=== PATIENT | female | born 1935 | race Caucasian/White ===

== ENCOUNTER 2018-03-20 18:54 | Inpatient (IN) | payer MEDICARE ==
[~2018-03-20] VITALS: Ht 152.4 cm; Wt 72.1 kg
--- NOTE | ~2018-03-20 | PR ---
[place], [place] PROGRESS NOTE NAME: [facility] UNIT #: [id number] ROOM: 314 DOCTOR: BRYCE CHACON MD BIRTHDATE: [birth year] DOS: 03/29/2018 CHIEF COMPLAINT: "I woke up at 4:00 and couldn't go back to bed." SUMMARY OF THE VISIT: The patient was interviewed as she was sitting in the dining area. She does report that her anxiety is under better control, but her depression is still persistent, although this has improved, but it has not gone completely. She also endorses significant sleep issues continuing. She denies any side effects from the medicine. MENTAL STATUS: She is alert and oriented. Mood does seem to be still depressed. Affect is still somewhat constricted. She is much less anxious. There is no hypomania or anju. There are no overt auditory or visual hallucinations. No delusions, no paranoia. Short, intermediate and long-term memories are intact. PLAN: I will go ahead and increase her Cymbalta from 30 to 60 mg at bedtime, hoping to impact positively on her mood and improve sleep and appetite. We will continue to engage in individual and obregon milieu activity, returning to the least restrictive environment when psychiatrically stable. BRYCE CHACON MD CM:PNTRANS [id number] BRYCE CHACON MD 03/29/18 1727 interface
--- NOTE | ~2018-03-20 | DS ---
[place], [place] DISCHARGE SUMMARY [id number] UN[facility] #: [id number] ROOM: 314 DOCTOR: BRYCE CHACON MD BIRTHDATE: [birth year] DOS: 03/31/2018 CHIEF COMPLAINT: "I just wore myself out. I was doing too much." HISTORY OF PRESENT ILLNESS: This is an 83-year-old white female who was sent here from [facility]. The patient had presented to [place] extremely depressed and despondent. 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 She notes poor sleep with difficulty falling asleep, sleep continuity disturbance, peoplesoft hcm consultant awakening, anergia, anhedonia, hopeless, helpless feelings, crying spells, and inability to cope. She has had such a poor appetite. She has lost several pounds. She is feeling hopeless and helpless. She is also having fleeting suicidal thoughts. She is admitted to stabilize on medication, to engage in individual and obregon milieu activity, discharging then when psychiatrically stable. SUMMARY OF HOSPITAL COURSE: The patient was admitted to the unit where her Lexapro was initially discontinued in lieu of Remeron 15 mg at bedtime. The patient did state that this did help her sleep, but she started to complain of feeling weird and feeling heart palpitations because of it and was sprayed to take it. Remeron was discontinued in lieu of Cymbalta 30 mg at bedtime, which she did tolerate. Screening examination showed her to have a low vitamin D level of 17.6, so vitamin D was started to augment her level at a dose of 5000 International Units daily. Ultimately, she began to notice that anxiety and depression when hand in hand and she was started on Atarax 10 mg 3 times a day. The dose was increased as high as 25 mg 4 times a day, but this caused her too much sedation and was finally brought down to 20 mg 3 times a day with excellent results. Ultimately, the dose of the Cymbalta was stabilized at 60 mg at bedtime. With these changes, the patient slept relatively well through the night, at times waking up at 3 or 4 in the morning, but going back to bed. She had much more energy during the day. She was able to eat and attend her ADLs. She voiced positive plans for the future. She no longer had suicidal thoughts and did feel that she could return home safely. MENTAL STATUS AT DISCHARGE: The patient was alert and oriented with time gaps that were only minimal. Mood was strongly trending towards euthymia. Affect was much more appropriate. There was no anju, hypomania or psychosis. There were no suicidal thoughts, homicidal thoughts, or self-injurious thoughts. Memory for the most part was intact. FINAL DIAGNOSIS: Major depression, recurrent, severe. PLAN: All of her prescriptions have been printed and will be sent with her. She will have outpatient followup in the community. At the time of discharge, she was psychiatrically and medically stable. [place], [place] DISCHARGE SUMMARY NAME: [facility] UNIT #: [id number] ROOM: [facility] DOCTOR: BRYCE CHACON MD BIRTHDATE: [birth year] BRYCE CHACON MD CM:JACINDA 5 BRYCE CHACON MD 03/31/18 1258 interface
--- NOTE | ~2018-03-20 | WRIGHTHP ---
[place], [place] PATIENT HISTORY AND PHYSICAL EXAM [id number] UN[facility] #: [id number] ROOM: 312 DOCTOR: BRYCE CHACON MD BIRTHDATE: [birth year] DOS: 03/21/2018 INITIAL PSYCHIATRIC EVALUATION CHIEF COMPLAINT: "I just wore myself out, I was doing too much." HISTORY OF PRESENT ILLNESS: This is an 83-year-old white female who was sent here from [facility]. The patient presented there extremely depressed and despondent. 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 She notes poor sleep with difficulty falling asleep, sleep continuity disturbance, care transition mgr awakening, anergia, anhedonia, hopeless, helpless feelings, crying spells, and inability to cope. She has had poor appetite and has lost several pounds. She feels hopeless and helpless and does not know what to do. She is admitted now to rule out organic factors and attempt to stabilize on medication, returning to the least restrictive environment when psychiatrically stable. PAST MEDICAL HISTORY: Remarkable for colonic polyps, diverticulosis, hyperlipidemia, hypertension, hypothyroidism, osteoarthritis. SOCIAL HISTORY: She does not smoke cigarettes, use illicit drugs or drink alcohol. STRENGTHS: Ambulatory, good verbal skills. WEAKNESSES: Poor coping skills. ALLERGIES: Listed to OPIOIDS, ACETAMINOPHEN, ZITHROMAX and CITALOPRAM. MENTAL STATUS: The patient is alert and oriented to person, place and time. Mood does seem to be overwhelmingly depressed. Affect is flat and blunted. Speech rate and pattern is somewhat slow, but within normal limits for the most part. There is no hypomania or anju. There is no gross psychosis. No auditory or visual hallucinations. No delusions, no paranoia. Short, intermediate, and long-term memory are intact. DIAGNOSIS: Major depression, recurrent, severe. PLAN: I had already discontinued her Lexapro in lieu of Remeron while the patient did report that she slept through the night. She reported that she woke up at 3:00 a.m., with significant jerking motion in her legs that has never happened before. Whether this is related to the Remeron or not, I will go ahead and err on the side that it is and discontinue it in lieu of Cymbalta now 30 mg at bedtime. Routine screening examinations revealed her vitamin D level to be subtherapeutic at 17.6. I will start vitamin D 5000 International Units daily, engage in individual and obregon milieu activity, returning to the least restrictive environment when psychiatrically stable. [place], [place] PATIENT HISTORY AND PHYSICAL EXAM NAME: [facility] UNIT #: [id number] ROOM: 312 DOCTOR: BRYCE CHACON MD BIRTHDATE: [birth year] BRYCE CHACON MD CM:HISPHYS:PATIENT HISTORY AND PHYSICAL EXAMINATION [id number] BRYCE CHACON MD 03/21/18 1205 interface
--- NOTE | ~2018-03-20 | PR ---
[place], [place] PROGRESS NOTE NAME: [facility] UNIT #: [id number] ROOM: 314 DOCTOR: BRYCE CHACON MD BIRTHDATE: [birth year] DOS: 03/28/2018 CHIEF COMPLAINT: "I actually feel better. I am going to have to try that sleeping pill though." SUMMARY OF THE VISIT: The patient was interviewed as she was sitting in the dining room with some female peers. She had completed her breakfast. She reported to me that the dose of the Atarax now does seem to be spot on and that it is working without any excess sedation. Her only complaint is that she did not sleep well. She initially refused the sleeping pill, but tonight wants to try to see how she does with it as sleep continues to be a problem because as she puts it, her wheels keep turning and she cannot shut it off. Otherwise, she is doing well and is trending towards euthymia. MENTAL STATUS: She is alert and oriented. Mood does seem to be strongly trending towards euthymia. Affect is much more appropriate. There is no anju or hypomania or psychosis. Short term memory, long-term memory and intermediate memory are relatively intact. PLAN: I will maintain her current psychotropics. Continue to support and monitor. Continue to engage in individual and obregon milieu activity, returning to the least restrictive environment when psychiatrically stable. BRYCE CHACON MD CM:PNTRANS [id number] BRYCE CHACON MD 03/28/18 1413 interface
--- NOTE | ~2018-03-20 | PR ---
[place], [place] PROGRESS NOTE NAME: [facility] UNIT #: [id number] ROOM: 314 DOCTOR: BRYCE CHACON MD BIRTHDATE: [birth year] DOS: 03/24/2018 CHIEF COMPLAINT: "I feel like I have butterflies in my chest." SUMMARY OF THE VISIT: The patient was interviewed in the dining area. She reported to me that she had butterflies in her chest. We talked at first about whether this was a medication side effects to which she seems to minimize that as a possibility. When I did tell her that I was thinking of possibly discharging her, she said that the feeling it worse and that she truly is an anxious person. When I did redirect this and I asked her specifically if she thinks that she is experiencing anxiety, she nodded in approval and stated that she has always been a very nervous person her entire life. She was willing to allow me to utilize an antianxiety medication throughout the day to see if it would help with the feelings. MENTAL STATUS: She remains alert and oriented with some time gaps. Mood does seem to be fairly euthymic. She is outwardly anxious, however. There is no anju or psychosis. There is no significant memory issues. PLAN: I will order Atarax 10 mg to be given at every 0900 hours and 1300 hours. We will monitor for risk, benefit, engage in individual and obregon milieu activity, returning to the least restrictive environment when psychiatrically stable. BRYCE CHACON MD CM:PNTRANS 1308 BRYCE CHACON MD 03/24/18 1309 interface
--- NOTE | ~2018-03-20 | CON ---
[place], [place] REPORT OF CONSULTATION NAME: [facility] UNIT #: [id number] ROOM: 314 DOCTOR: PHD BRADEN CHANDLER BIRTHDATE: [birth year] DOS: 03/25/2018 HISTORY OF PRESENT ILLNESS: The patient is an 83-year-old female referred by Dr. Sheridan for counseling. She was presently on the [facility]. The patient's many years ago and her partner recently had another stroke on , which triggered an episode of depression for the patient. 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 She does not have any children and is close with her sister. She denied alcohol, tobacco and illegal drug use. PAST MEDICAL HISTORY: Colonic polyps, diverticulosis, hyperlipidemia, hypertension, hypothyroidism, osteoarthritis. MEDICATIONS: Atarax, vitamin D, Lipitor, Cymbalta, Ziac, Travatan, Protonix, Synthroid, Geodon, and Ativan. PHYSICAL EXAMINATION: NEUROLOGIC: The patient was awake, alert and oriented to person, place and time. She was pleasant and cooperative. Mood was anxious and depressed and affect was tearful. She firmly denied current suicidal ideation and homicidal ideation, although she had been experiencing a desire for for several weeks prior. She denied a plan or intent. Speech was within normal limits with respect to rhythm, rate, volume and tone. Expressive and receptive language was within normal limits conversationally. Thought process was linear and goal directed and thought content was negative for obvious hallucinations or delusions. Insight and judgment appeared fair. Discussed caregiving fatigue and the patient fears about returning home, utilized CBT and supportive therapy interventions. The patient was receptive to feedback. She is interested in outpatient therapy upon discharge. DIAGNOSES: Major depressive disorder, recurrent, severe without psychotic features. PLAN: I will continue to follow the patient as needed. She agrees to follow up with counseling as an outpatient upon discharge. Thank you very much for this consult. [place], [place] REPORT OF CONSULTATION NAME: [facility] UNIT #: [id number] ROOM: 314 DOCTOR: PHD BRADEN CHANDLER BIRTHDATE: [birth year] Beatrice Chandler PhD CM:CONSTR:REPORT OF CONSULTATION 1426 03/25/18 1448 interface
--- NOTE | ~2018-03-20 | PR ---
[place], [place] PROGRESS NOTE NAME: [facility] UNIT #: [id number] ROOM: 314 DOCTOR: BRYCE CHACON MD BIRTHDATE: [birth year] DOS: 03/26/2018 INTERVAL NOTE CHIEF COMPLAINT: "Oh, I am just so depressed and anxious. I don't know what to do." SUMMARY OF THE VISIT: The patient was interviewed as she was resting quietly in bed. She awoke easily and engaged readily in conversation, reporting ongoing anxiety and worry as well as depression. She is very fixated on multiple problems within her life and feels unable to solve them. She does report that the increase in the Atarax yesterday did help without side effect. She did not notice any sedation or somnolence, but still feels that her anxiety level is heightened. MENTAL STATUS: She is alert and oriented with some time gaps, but overall intact. Mood does still seem to be depressed with anxious overtones. There is no hypomania, anju or psychosis. Memory for the most part is intact. PLAN: I will go ahead and increase her Atarax from 10 mg 4 times a day to 25 mg 3 times a day. Monitor and support, engage in individual and obregon milieu activity, returning then to the least restrictive environment when psychiatrically stable. BRYCE CHACON MD CM:PNTRANS [id number] BRYCE CHACON MD 03/26/18 1217 interface
--- NOTE | ~2018-03-20 | PR ---
[place], [place] PROGRESS NOTE NAME: [facility] UNIT #: [id number] ROOM: 314 DOCTOR: BRYCE CHACON MD BIRTHDATE: [birth year] DOS: 03/27/2018 INTERVAL NOTE CHIEF COMPLAINT: "I am feeling kind of spacy and jittery at the same time." SUMMARY OF THE VISIT: The patient was interviewed in the dining area. She reported that she had a bad day and that the anxiety continues to be problematic. She did not sleep well. She also reports having multiple crying spells and feeling extremely depressed. She does also note that the current dose of Atarax may be too strong for her. MENTAL STATUS: She is alert and oriented to person, place and very approximate to time. Mood does still seem to be down and depressed with flat, blunted affect with anxious overtones. There is no anju or hypomania. There is no gross psychosis noted. Short-term, long-term, and intermediate memory for the most part is intact. PLAN: I will lower the Atarax from 25 mg 3 times a day to 20 mg 3 times a day. I will renew her p.r.n. Ativan should she require intervention and add Rozerem 8 mg p.r.n. sleep at night. Engage in individual and obregon milieu activity, returning to the least restrictive environment when psychiatrically stable. BRYCE CHACON MD CM:PNTRANS [id number] BRYCE CHACON MD 03/27/18 1429 interface
--- NOTE | ~2018-03-20 | PR ---
[place], [place] PROGRESS NOTE NAME: [facility] UNIT #: [id number] ROOM: 314 DOCTOR: BRYCE CHACON MD BIRTHDATE: [birth year] DOS: 03/30/2018 CHIEF COMPLAINT: "Oh, I woke up at 3:00 a.m. again. My around that time, I wonder if that is part of the problem." SUMMARY OF THE VISIT: The patient was interviewed in the dining area. She reports that other than waking up at 3:00 a.m. in the morning consistently, she has been doing much better. Her mood is brighter. She is less anxious during the day. She is tolerating the current medication regimen well without sedation, somnolence, extrapyramidal symptoms or tardive dyskinesia. MENTAL STATUS: She is alert and oriented. Mood does seem to be strongly trending towards euthymia. Affect is more appropriate. There is no anju, hypomania or psychosis. Short term, intermediate, and long-term memory are fully intact. PLAN: I will maintain her current psychotropic regimen, engage in individual and obregon milieu activity, returning to the least restrictive environment when psychiatrically stable. BRYCE CHACON MD CM:PNTRANS [id number] BRYCE CHACON MD 03/31/18 0404 interface
--- NOTE | ~2018-03-20 | PR ---
[place], [place] PROGRESS NOTE NAME: [facility] UNIT #: [id number] ROOM: 314 DOCTOR: BRYCE CHACON MD BIRTHDATE: [birth year] DOS: 03/25/2018 CHIEF COMPLAINT: "The medicine helped some, but it did not last long enough." SUMMARY OF THE VISIT: The patient was interviewed in the dining area where she engaged readily in conversation. She reports that the medicine that I gave her yesterday for the anxiety did seem to help, but that it did not last consistently through the day and wore off later in the evening. She convincingly denied any side effects from the medicine and did not notice any sedation or somnolence. MENTAL STATUS: She remains alert and oriented with some minor time gaps. Mood does seem to be more euthymic. Affect is more appropriate. There is no anju or hypomania or psychosis. PLAN: I will go ahead and increase her Atarax from 10 mg b.i.d. to 10 mg q.i.d., monitor and support, engage in individual and obregon milieu activity, returning to the least restrictive environment when psychiatrically stable. BRYCE CHACON MD CM:PNTRANS [id number] BRYCE CHACON MD 03/25/18 1319 interface
[2018-03-20] MEDS ORDERED: TRAVATAN Z 2.52.5 ML OU (19:04)
[2018-03-20] MEDS ORDERED: SYNTHROID25 MCG PO (19:04)
[2018-03-20] MEDS ORDERED: BISOPROLOL-HCT1 EACH PO (19:05)
[2018-03-20] MEDS ORDERED: ATORVASTATIN CA40 M1 PO (19:06)
[2018-03-20] MEDS ORDERED: PROTONIX40 MG PO (19:07)
[2018-03-20] MEDS ORDERED: LEXAPRO10 MG PO (19:07)
[2018-03-20 23:23] VITALS: BP 145/58
--- NOTE | 2018-03-20 23:30 | NUR ---
HAMMER RUNNER AND DR WOMACK NOTIFIED OF ADMISSION
--- NOTE | 2018-03-20 23:30 | NUR ---
[facility] a 83 year old F admitted via stretcher from the [facility] as a voluntary admission. Arrived on unit at 2315. ALLERGIES: CELEXA, OPIODS, TYLENOL, AZITTHROMAX. Vital signs are: [id number] 145/58. The client signed the following forms with stated understanding: Authorization For The Release of Medical Information, Clothing List, Consent to Voluntary Admission and Hospitalization, Consent and Release Forms/Receipt of Rights, Acknowledgement of Advance Directive Information, Behavioral Health Consent Form, and Informed Consent of Medications. Admitted under the services of [facility]. A search was conducted and hazardous articles were removed. Client was oriented to the unit. AUSTIN SOUSA
--- NOTE | 2018-03-20 23:45 | NUR ---
DR PERKINS ON UNIT TO SEE PT FOR MEDICAL CONSULT.
[2018-03-20 23:48] VITALS: BP 145/58
--- NOTE | 2018-03-21 05:50 | NUR ---
SLEPT PAST 0115.
[2018-03-21 06:31] LABS: EOS # 0.2 10*3/uL (0.0-0.4); EOS % 2.8 % (1.0-4.0); MEAN CORPUSCULAR HGB CONC 32.8 g/dl (33.0-37.0)
[2018-03-21 06:41] LABS: BASO % 0.4 % (0.0-1.0); HEMATOCRIT 39.6 % (37.0-47.0); LYMPH % 29.4 % (27.0-41.0); MEAN CELL VOLUME 92.3 fl (81.0-99.0); MEAN CORPUSCULAR HGB 30.3 pg (27.0-31.0); MONO # 0.8 10*3/uL (0.1-1.0); MONO % 11.2 % (3.0-9.0); NEUT # 3.7 10*3/uL (2.3-7.9); NEUT % 55.3 % (47.0-73.0); PLATELET COUNT AUTOMATED 379 10*3/uL (130-400); RED BLOOD COUNT 4.29 10*6/uL (4.10-5.10); RED CELL DISTRI WIDTH 13.6 % (0-14.5); WHITE BLOOD COUNT 6.7 10*3/uL (4.8-10.8)
[2018-03-21 06:55] LABS: ALBUMIN 3.1 gm/dl (3.1-4.5); ALKALINE PHOSPHATASE 74 U/L (45-117); BUN 13 mg/dl (7-24); CHLORIDE 102 mmol/L (98-107); CHOLESTEROL 152 mg/dL (<200); CREATININE 0.78 mg/dL (0.55-1.02); HDL CHOLESTEROL 52 mg/dl (40-60); LDL CHOLESTEROL 82 mg/dL (9-159); POTASSIUM 4.5 mmol/L (3.5-5.1); SGOT/AST 11 IU/L (3-35); SGPT/ALT 24 U/L (12-78); SODIUM 136 mmol/L (136-145); TOTAL PROTEIN 6.7 gm/dL (6.4-8.2); TRIGLYCERIDES 91 mg/dl (<150); VLDL CHOLESTEROL 18 mg/dL (6-40)
[2018-03-21 07:15] VITALS: BP 134/64
[2018-03-21 07:16] VITALS: BP 134/64
[2018-03-21 07:59] LABS: VITAMIN D, 25-HYDROXY 17.6 ng/mL (30-100)
[2018-03-21 08:51] VITALS: BP 134/64
--- NOTE | 2018-03-21 10:57 | NUR ---
DR. BOYER ON UNIT TO ASSESS PATIENT.
--- NOTE | 2018-03-21 10:59 | NUR ---
DR. BOYER ON UNIT TO ASSESS PATIENT.
--- NOTE | 2018-03-21 11:59 | NUR ---
AM GROUP/EXERCISE AND BRAIN GAMES PT ATTENDED AND PARTICIPATED IN ALL GROUP ACTIVITIES. PT EXHIBITED NO SIGNS OF DEPRESSION OR ANXIETY DURING GROUP. PT WAS SOCIAL WITH PEERS AND ON TASK.
--- NOTE | 2018-03-21 15:33 | NUR ---
URINE SPECIMEN COLLECTED VIA CLEAN CATCH, LIGHT YELLOW WITHOUT SEDIMENT, SENT TO LAB.
--- NOTE | 2018-03-21 15:45 | NUR ---
PM GROUP/MUSIC AND MANICURES PT ATTENDED AND PARTICIPATED IN ALL GROUP ACTIVITIES. PT EXHIBITED NO SIGNS OF DEPRESSION OR ANXIETY DURING GROUP. PT WAS TALKATIVE WITH STAFF AND PEERS AND ON TASK.
[2018-03-21 15:47] LABS: BILIRUBIN NEGATIVE (NEGATIVE); BLOOD NEGATIVE (NEGATIVE); CLARITY CLEAR (CLEAR); COLOR YELLOW (YELLOW); GLUCOSE NEGATIVE (NEGATIVE); KETONE NEGATIVE (NEGATIVE); LEUKO ESTERASE TRACE (NEGATIVE); NITRITE NEGATIVE (NEGATIVE); PH 5.5 (5.0-9.0); SPECIFIC GRAVITY 1.015 (1.005-1.030); UROBILINOGEN 0.2 E.U./dl (0.2-1.0)
[2018-03-21 16:00] LABS: BACTERIA TRACE
--- NOTE | 2018-03-21 17:59 | NUR ---
P: SLIGHYLY ANXIOUS, TEARFUL, PREOCCUPIED ABOUT MEDICATIONS I: PROVIDE ONE ON ONE, CLARIFIED MEDICATIONS OF CONCERNS R: EFFECTIVE P: CONTINUE TO PROVIDE ONE ON ONE NEEDED, ENCOURAGE PATIENT TO PARTICIPATE IN GROUP SESSION TO SOCIALIZE WITH OTHER PATIENTS. PATIENT IS ALERT AND ORIENTED TO PERSON, PLACE, TIME AND SITUATION; ABLE TO VOICE NEEDS. MOOD IS SLIGHTLY ANXIOUS, DEPRESSED AND TEARFUL. DENIES ANY HALLUCINATIONS, DELUSIONS, HI/SI OR PAIN. INTERACTIVE WITH STAFF AND OTHER PATIENTS. INDEPENDENT WITH ACTIVITIES OF DAILY LIVING, CONTINENT OF BOWEL AND BLADDER. SET UP FOR MEALS, INTAKES ARE FAIR WITH ADEQUATE FLUIDS. MEDICATION COMPLAINT WITH EDUCATION PROVIDED. Q 15 MINUTE SAFETY CHECKS MAINTAINED. CONTINUE TO MONITOR MOOD, PROVIDE ONE ON ONE NEEDED.
[2018-03-21 19:58] VITALS: BP 133/71
--- NOTE | 2018-03-21 21:25 | NUR ---
Met with pt and her sister-Jailyn and provided support and encouragement and listened to concerns and reason for admission. sister provided collateral information. Completed psychosocial assessment. Reviewed CBT strategies and provided therapeutic assignements for pt to work on this weekend. Medication education about Cymbalta provided by RN upon request. Cautioned pt on self sacrificing behaviors and being a helper that pt sometimes does not take care of her own needs and focus on her treatment. Notified nurses of concerns and things to look out for and redirect.
--- NOTE | 2018-03-21 23:15 | NUR ---
P-DEPRESSED MOOD AND ANXIOUS. PATIENT WITH NO SHORT TERM OR FACIAL OPERATOR MEMORY DEFICITS. NO RESPIRATORY DISTRESS NOTED. NO HALLUCINATIONS OR DELUSIONS. PATIENT WITH NO SUICIDAL OR HOMICIDAL IDEATIONS. PATIENT WITH VERBALIZED FEELING "DEPRESSED AT TIMES BUT IS VERY EULALIA THAT THEIR ARE PEOPLE WHO CARE ABOUT ME" I-EDUCATE AND ENCOURAGE MEDICATION COMPLIANCE R- PATIENT ANXIOUS ABOUT RECEIVING MEDICATIONS AND PREOCCUPIED WITH EYE MEDICATIONS. PATIENT TOOOK ALL HS MEDICATIONS. PATIENT WITH NUMEROUS PHONE CALLS FROM [employer] WHILE PATIENT TALKING TO MANUFACTURING TEAM MEMBER. PATIENT VERBALIZED THAT SHE WOULD RETURN CALLS TO FAMILY TOMORROW. P-CONTINUE TO ENCOURAGE MEDICATION COMPLIANCE, ENCOURAGE GROUP THERAPY WHILE AWAKE
--- NOTE | 2018-03-22 03:37 | NUR ---
24 HR chart check completed.
--- NOTE | 2018-03-22 06:21 | NUR ---
PATIENT SLEPT 5-6 HOURS OF INTERRUPTED SLEEP THROUGHOUT SHIFT. Q 15 MINUTE CHECKS MAINTAINED.
[2018-03-22 07:40] VITALS: BP 133/61
--- NOTE | 2018-03-22 08:41 | NUR ---
Shift chart check completed.
--- NOTE | 2018-03-22 09:52 | NUR ---
PHYSICAL THERAPY PT orders received. Patient is 100 % (I) with mobility throughout unit and (I) ADL's per staff and patient. No PT skills needs, d/c PT at this time. PAtient and staff agree. Thank you for this referral. Cecile Engle,PT
--- NOTE | 2018-03-22 11:58 | NUR ---
AM GROUP/EXERCISES/MUSIC/GAMES PT ATTENDED AND PARTICIPATED IN GROUP. PT PLEASANT AND ON TASK. PT OPENED UP ABOUT REASONS FOR DEPRESSION AND THIS STAFF GAVE PT SOME COPING SKILLS TO UTILIZE. PT RECEPTIVE AND OPEN TO IDEAS. PT DID NOT DISPLAY ANY ANXIETY OR PHOBIAS TOWARDS ANYTHING AT THIS TIME. PT WILL CONTINUE TO ATTEND AND PARTICIPATE IN FUTURE GROUP SESSIONS.
--- NOTE | 2018-03-22 13:33 | NUR ---
P-PT REMAINS MILDLY DEPRESSED WITH FLAT AFFECT AT TIMES. CONVINCINGLY DENIES ANY SI/HI, PLAN, INTENT. NO C/O ANXIETY NOTED THIS SHIFT. POSITIVE INTERACTIONS WITH STAFF. I-ENCOURAGED PT TO ATTEND AND PARTICIPATE IN GROUP THERAPIES, MEDICATION EDUCATION, 1:1 NEEDED, ENCOURAGED PT TO VERBALIZE FEELINGS RELATED TO DEPRESSION. R-PT ALERT AND ORIENTED X4. PLEASANT AND COOPERATIVE THIS SHIFT. VERBALIZES UNDERSTANDING OF MEDICATIONS. ATTENDED AND PARTICIPATED IN GROUP THERAPY THIS MORNING. P-ENCOURAGE GROUPS, 1:1 NEEDED, MEDICATION EDUCATION NEEDED.
[2018-03-22 20:00] VITALS: BP 127/64
--- NOTE | 2018-03-22 23:20 | NUR ---
P-DEPRESSED MOOD. PATIENT WITH NO SHORT TERM OR CHIEF I DISPATCHER MEMORY DEFICITS NOTED. NO RESPIRATORY DISTRESS. PATIENT WITH NO HALLUCINATIONS OR DELUSIONS. PATIENT WITH NO SUICIDAL OR HOMICIDAL IDEATIONS. PATIENT VERBALIZING "FEELING DEPRESSED BUT I FELL BETTER TODAY". I-EDUCATE AND ENCOURAGE MEDICATION COMPLIANCE R-PATIENT MEDICATION COMPLIANT. PATIENT EDUCATED ABOUT MEDICATION RECEIVED AT HS. PATIENT VERBALIZED UNDERSTANDING ABOUT MEDICATIONS. PATIENT AMBULATORY ON THE UNIT WITH STEADY GAIT AND WITH NO ASSISTIVE DEVICE P-CONTINUE TO ENCOURAGE MEDICATION COMPLIANCE, ENCOURAGE GROUP THERAPY WHILE AWAKE
--- NOTE | 2018-03-23 00:40 | NUR ---
24 HR chart check completed.
--- NOTE | 2018-03-23 06:34 | NUR ---
PATIENT SLEPT 6 HOURS UNINTERRUPTED THROUGHOUT SHIFT. Q 15 MINUTE CHECKS MAINTAINED
[2018-03-23 07:11] VITALS: BP 125/74
--- NOTE | 2018-03-23 11:07 | NUR ---
PT ALERT, ORIENTED, INDEPENDENT. CONTINUES TO C/O SOME DEPRESSIVE SYMTOMS AND EPISODES OF ANXIETY. HOWEVER, PT ABLE TO EFFECTIVELY UTILIZE COPING SKILLS TO INDEPENDENTLY WORK THROUGH PERIODS OF INCREASED ANXIETY. PT DENIES ANY SI/HI, PLAN, OR INTENT. MEDICATION COMPLIANT WITHOUT DIFFICULTY. POSITIVE PEER AND STAFF INTERACTIONS. REMINICING WITH STAFF IN DAY ROOM THIS MORNING. WILL CONTINUE TO MONITOR MOOD AND BEHAVIORS FOR CHANGES.
--- NOTE | 2018-03-23 13:55 | NUR ---
Shift chart check completed.
--- NOTE | 2018-03-23 16:00 | NUR ---
PM GROUP PT ATTENDED AND PARTICIPATED DURING GROUP. PT TEARFUL TOWARDS END OF GROUP. THIS STAFF INQUIRES WHAT PT IS UPSET ABOUT, PT STATES "I'M ANXIOUS BUT I'M NOT SURE WHY" THIS STAFF CONTINUES TO TALK THROUGH WHAT MAY BE BOTHERING PT AND WAYS TO COPE WITH ANXIOUS FEELINGS.PT LEFT GROUP A FEW MINUTES EARLY FOR A PHONE CALL. PT WILL CONTINUE TO ATTEND AND PARTICIPATE IN FUTURE GROUP SESSIONS.
[2018-03-23 19:16] VITALS: BP 125/69
--- NOTE | 2018-03-23 19:28 | NUR ---
checked in regarding pt therapy assignments and pt indicated that she is doing them a little but also been on the phone. REminding pt to focus on working on herself and pt shared some of her positive memories of travel. Pt became tearful while discussing one conversation with a friend who is terribly worried about pt and this ghost writer offered support.
--- NOTE | 2018-03-23 21:44 | NUR ---
P--MILD DEPRESSION I--1:1, MEDICATED PER ORDERS. MEDICATION EDUCATION COMPLETED. DISCUSSED COPING SKILLS. EMOTIONAL SUPPORT PROVIDED R-- STATES SHE HAD A GOOD DAY. NOTHING BAD HAPPENED WHICH IS GOOD. DENIES ANY WORRIES OR CONCERNS. USING HER COPING TECHNIQUES P--MONITOR FOR CHANGES IN BEHAVIOR OR MOOD. CONTINUE EMOTIONAL SUPPORT. BE AVAILABLE IF NEEDS TO TALK
--- NOTE | 2018-03-24 00:06 | NUR ---
24 HR chart check completed.
--- NOTE | 2018-03-24 06:03 | NUR ---
SLEPT OVER 6.5 HOURS
[2018-03-24 07:55] VITALS: BP 137/56
--- NOTE | 2018-03-24 08:15 | NUR ---
Treatment Plan meeting with Dr. Sheridan, RN, AT, SW and Extruding Machine Operator. Plan for discharge Saturday/Saturday. Pt. to return home with follow up.
--- NOTE | 2018-03-24 09:17 | NUR ---
P-MILD DEPRESSION AND ANXIETY. I-PROVIDED 1:1. MEDICATED PER ORDERS. EMOTIONAL SUPPORT PROVIDED. REVIEWED COPING SKILLS. R-PT STATES "I AM HAVING A GOOD MORNING." PT USING COPING TECHNIQUES. PT IS MEDICATION COMPLIANT. P-MONITOR CHANGES IN BEHAVIOR AND MOOD. CONTINUE TO PROVIDE EMOTIONAL SUPPORT. CONTINUE TO ENCOURAGE MEDICATION COMPLIANCE.
--- NOTE | 2018-03-24 14:27 | NUR ---
Occupational Therapy referral received and screen completed. Patient is independent in all functional mobility and ADLS and does not require OT intervention at this time. Discharge OT referral. Thank you. Sally Garner OTR/Arvind
--- NOTE | 2018-03-24 15:30 | NUR ---
PM GROUP/MEDITATION/STORY PT ATTENDED AND PARTICIPATED DURING GROUP. PT DID NOT APPEAR ANXIOUS OR TEARFUL DURING GROUP. PT FOCUSED ON ACTIVITY. PT WILL CONTINUE TO ATTEND AN DPARTICIPATE IN FUTURE GROUP SESSIONS.
[2018-03-24 20:00] VITALS: BP 137/51
--- NOTE | 2018-03-24 22:30 | NUR ---
P--DEPRESSION I--DISCUSSED COPING SKILLS AND HER PLANS FOR DISCHARGE. MEDICATE AND EDUCATE. BE AVAILABLE FOR 1:1. R--I AM FEELING BETTER. I THINK THE MEDICATIONS ARE WORKING. I HAD A GOOD DAY P---MONITOR FOR CHANGES IN MOOD AND BEHAVIOR
--- NOTE | 2018-03-25 06:40 | NUR ---
SLEPT WELL PAST 2200PM
[2018-03-25 08:02] VITALS: BP 135/58
--- NOTE | 2018-03-25 08:15 | NUR ---
Treatment Plan meeting with Dr. Sheridan, RN, AT, SW and Shampoo Assistant. Plan for discharge Possible Saturday. Pt. to return home.
--- NOTE | 2018-03-25 08:45 | NUR ---
DR. ESQUIVEL ON UNIT TO ASSESS PATIENT.
--- NOTE | 2018-03-25 12:00 | NUR ---
AM GROUP/ISSUES OF AGING PT ATTENDED AND PARTICIPATED IN ALL GROUP ACTIVITIES. PT WAS OPEN IN DISCUSSION WITH THIS STAFF MEMBER ON ISSUES OF BEING RELEASED AND RETURNING HOME. PT EXPRESSED SOME ANXIETY AND DISCUSSED COPING STRATEGIES TO DEAL WITH ANXIOUS IDEATIONS AND WORRY
--- NOTE | 2018-03-25 15:03 | NUR ---
P: DEPRESSED MOOD AND TEARFUL I: ONE ON ONE PROVIDED, ENCOURAGE TO PARTICIPATE IN GROUP SESSION AND SOCIALIZED WITH STAFF/OTHER PATIENTS. R: RECEPTIVE AND PARTICIPATING IN AFTERNOON GROUP, SEEN DR. SMITH FOR COUNSELING P: CONTINE TO GET PATIENT INVOLVED IN GROUP SESSION AND INTERACT WITH STAFF/OTHERS PATIENT IS ALERT AND ORIENT TO PERSON, PLACE, TIME AND SITUATION; ABLE TO VOICE NEEDS. MOOD IS DEPRESS AND ANXIOUS. DENIES ANY HALLUCINATIONS, DELUSIONS, HI/SI OR PAIN. MEDICATION COMPLIANT WITH EDUCATION PROIVDED. Q 15 MINUTE SAFETY CHECKS. INDEPENDENT WITH ACTIVITIES OF DAILY LIVING, CONTINENT OF BOWEL AND BLADDER. AMBULATORY WITH STEADY GAIT. SET UP FOR MEALS, INTAKES ARE GOOD WITH ADEQUATE FLUIDS. INTERACTIVE WITH STAFF AND PARTIICPATES IN GROUP SESSIONS. CONTINUE TO MONITOR FOR MOOD CHANGES. PROVIDE ONE ON ONE AND ENCOURAGE SOCIAL INTERACTIONS WITH STAFF AND PEERS ON UNIT.
--- NOTE | 2018-03-25 15:40 | NUR ---
PM GROUP/LEISURE INTERESTS PT ATTENDED AND PARTICIPATED IN GROUP BY USING MY LAPTOP AND PLAYING GAMES THAT IS HER CUSTOM AT HOME. PT EXHIBITED NO DEPRESSIVE OR ANXIOUS BEHAVIORS AND STATED THAT SHE FEELS MUCH BETTER TODAY.
--- NOTE | 2018-03-25 19:45 | NUR ---
Engaged in CBT and anxiety management and distress tolerance skill building. REviewed discharge plans with pt and her sister Moni who indicated strong concerns about pt discharging tomorrow and requested pt stay as pt "is not herself". Collaborated with tx team and manufacturing planner and expressed concerns with Dr. Sheridan regarding pts affect being flat with depressed mood and lots of signs of anxiety despite engaging in anxiety management strategies. changed medication and will assess tomorrow to determine discharge plan. Pt states she does not want to be a burden. Started safety plan and discussed calling [employer] if needed as a resource and explained aftercare appts.
[2018-03-25 20:40] VITALS: BP 142/58
--- NOTE | 2018-03-25 22:18 | NUR ---
PATIENT ALERT AND ORIENTED X4. MOOD STABLE. PT CALM, COOPERATIVE, AND INTERACTIVE, PT SAT IN DINING ROOM FOR HS SNACK. PT STATED DURING 1:1 "IM DOING OKAY TODAY, IM FEELING BETTER". DENIES SI/HI AND HALLUNCINATIONS, NO NOTED RESPONDING TO INTERNAL STIMULI. NO PARANOIA/DELUSIONS OBSERVED. MEDICATION COMPLIANT WITHOUT DIFFICULTY AFTER REVIEW. NO PHYSICAL COMPLAINTS NOTED. PATIENT CURRENTLY WATCHING TV IN DINING ROOM WITH PEERS. RESPIRATIONS EASY AND REGULAR, NO SIGNS OR SYMPTOMS OF DISTRESS NOTED.
--- NOTE | 2018-03-26 05:41 | NUR ---
24 HOUR CHART CHECK COMPLETED.
--- NOTE | 2018-03-26 05:46 | NUR ---
PATIENT OBSERVED ON Q 15 MIN CHECKS TO HAVE SLEPT APPROX 6 HOURS WITH NO AWAKENINGS OR SIGNS AND SYMPTOMS OF DISTRESS NOTED.
[2018-03-26 07:37] VITALS: BP 140/65
--- NOTE | 2018-03-26 12:14 | NUR ---
AM GROUP PT WAS IN BED AT THE START OF GROUP AND COULD NOT BE ENCOURAGED TO ATTEND MORNING GROUP. PT WILL BE ENCOURAGED TO ATTEND THIS AFTERNOON
--- NOTE | 2018-03-26 14:54 | NUR ---
Shift chart check completed.
--- NOTE | 2018-03-26 15:43 | NUR ---
PM GROUP/MUSIC AND FOCUS GROUP PT ATTENDED AND PARTICIPATED IN GROUP BY WORKING A WORD SEARCH AND OPENLY DISCUSSING WITH THIS HEALTH INSPECTOR FOOD ISSUES OF DEPRESSION AND ANXIETY. PT WAS TEARFUL AT TIMES AND STATED, "I AM FEELING LOST AND HOPELESS. I'M AFRAID THAT I WON'T BE ABLE TO DO THE THINGS THAT I USED TO AND THAT I AM GOING TO FEEL THIS WAY FOR THE REST OF MY LIFE." PT WAS REASSURED AND GIVEN TIME TO EXPRESS HER THOUGHTS AND FEELINGS. PT DID DISCUSS A PASSIVE WISH BY STATING, "IF I JUST WENT HOME AND , MAYBE IT WOULD ALL BE CLEAR." PT WAS ASSURED THAT WAS NOT AN OPTION. PT AGREED.
--- NOTE | 2018-03-26 17:08 | NUR ---
P: PATIENTS MOOD ANXIOUS AND DEPRESSED. ISOLATIVE AND WITHDRAWN TO SELF BUT STILL STAYING OUT IN THE DINING ROOM. PARTICPATED IN GROUP THIS EVENING. TEARFUL AT TIMES. PATIENT EXPRESSED A PASSIVE WISH, STATING "IF I AM TO GO HOME, I AM BETTER OFF DYING. I CAN NOT DO THIS". DID VERBALLY CONTRACTED FOR SAFETY. I: 1:1 INTERACTION WITH EMOTIONAL SUPPORT PROVIDED. ALLOWED PATIENT TO EXPRESS FEELINGS. ENCOURAGED TO PARTICIPATE AND INTERACT IN GROUP FOR SOCIALIZATION AND EMOTIONAL SUPPORT. ENCOURAGE TO ENGAGE IN CONVERSATION WITH STAFF AND PEERS. HAD VERBALLY CONTRACT FOR SAFETY. ASSESSED FOR HALLUCIANTIONS, DELUSIONS, SI/HI, OR PAIN. OFFERED RELAXATION TECHNIQUES AND DIVERSIONAL ACTIVITIES. TALKED WITH PATIENT ABOUT THOUGHT STOPPING AND WAYS THAT SHE CAN OVERCOME FEELINGS THAT SHE HAS. OFFERED DIFFERENT THINGS SUCH EXERCISE AND ACTIVITIES TO GET STAY BUSY. TALKED TO PATIENT ABOUT ALLOWING OTHERS TO CARE FOR HER AT TIMES INSTEAD OF WORRYING ABOUT OTHERS. RELAXATION TECHNIQUES AND ACTIVITIES PROVIDED. R: PATIENT CONTINUES TO BE TEARFUL AND DEPRESSED. TALKS IN SHORT SENTENCES AND SMILING EVERY ONCE IN A WHILE WHEN ATTEMPTING TO ENGAGE IN CONVERSATION. VERBALLY CONTRACT FOR SAFETY. DENIES HALLUCINATIONS, DELUSIONS, SI/HI, OR PAIN. DENIES WANTING TO DO ANY SELF HARM. JUST WISHES THAT HER HEART WOULD STOP OR SHE WOULD JUST . PATIENT USING SOME RELAXATION TECHNIQUES BUT STATES THAT THEY ARE NOT WORKING FOR HER. PATIENT EXPRESSED BEING WORRIED ABOUT GOING HOME. PATIENT PARTICIPATING IN GROUP ACTIVITIES. GOOD APPETITE PER RECORDS. AMBULATING WITH A STEADY GAIT. NO INCONTINENCE THUS FAR THIS SHIFT. P: CONTINUE TO MONIOTOR PATIENT FOR ANY SUICIDAL IDEATION AND HAVE PATIENT CONTRACT FOR SAFETY EVERY SHIFT. 1:1 INERACTION WITH EMOTIONAL SUPPORT PROVIDED. ALLOW PATIENT TO EXPRESS HER FEELINGS. CONTINUE TO OFFER SUPPORT AND GIVE RELAXATION TECHNIQUES. ENCOURAGE PATIENT ABOUT DIVERSIONAL THINKING AND WAYS TO COPE WITH HER DEPRESSION. Q15 MINUTE CHECKS MAINTAINED FOR SAFETY. ENCOURAGE TO PARTICIPATE IN GROUP FOR SOCIALIZATION AND EMOTIONAL SUPPORT. MONITOR FOR HALLUCINATIONS, DELUSIONS, SI/HI.
--- NOTE | 2018-03-26 17:16 | NUR ---
Pt appeared with a depressed mood and covered her face with her faces. Pt expressed feeling overwhelmed and was less able to convey her feelings than previously. Pt offered support. Pt seemed to have no appetite and was having to force herself to eat some. collaborated with RN regarding pt affect and progress/regression.
[2018-03-26 20:00] VITALS: BP 141/60
--- NOTE | 2018-03-27 01:29 | NUR ---
P-DEPRESSION I-PROVIDE 1:1 FOR PATIENT TO VOICE THOUGHTS, NEEDS, AND FEARS. PROVIDE EMOTIONAL SUPPORT.REVIEW COPING SKILLS.ENCOURAGE MEDICATION COMPLIANCE. R- PATIENT GUARDED DURING 1:1, STATES SHE IS STILL DEPRESSED, WOULD NOT ELABORATE. DENIES SUICIDAL IDEATIONS, PATIENT INFORMED IF THOUGHTS ARISE TO HARM SELF TO NOTIFY STAFF, PATIENT CONTRACTED FOR SAFETY. MEDICATION COMPLIANT WITHOUT DIFFICULTY AFTER REVIEW. NO PHYSICAL COMPLAINTS NOTED. P-CONTINUE TO PROVIDE 1:1 AND EMOTIONAL SUPPORT NEEDED. ENCOURAGE THE USE OF COPING SKILLS. ENCOURAGE MEDICATION COMPLIANCE. MONITOR ON Q 15 MIN SAFETY CHECKS.
--- NOTE | 2018-03-27 06:06 | NUR ---
PATIENT OBSERVED ON Q 15 MIN CHECKS TO HAVE SLEPT APPROX 6 HOURS WITH NO AWAKENINGS OR SIGNS AND SYMPTOMS OF DISTRESS NOTED.
--- NOTE | 2018-03-27 06:53 | NUR ---
24 hour chart check completed.
[2018-03-27 07:43] VITALS: BP 123/40
--- NOTE | 2018-03-27 08:15 | NUR ---
Treatment Plan meeting with Dr. Sheridan, RN, AT, SW and Medical Assisting Instructor. Plan for discharge next week. Pt. is from Home and will return home at discharge.
--- NOTE | 2018-03-27 10:30 | NUR ---
DR. BOYER ON UNIT TO ASSESSMENT.
--- NOTE | 2018-03-27 13:13 | NUR ---
AM GROUP/EXERCISE AND PARACHUTE PT ATTENDED AND PARTICIPATED IN ALL GROUP ACTIVITIES. PT SEEMED A LITTLE LESS DEPRESSED TODAY AND WAS WILLING TO DISCUSS WITH THE PAPER CUTTER OPERATOR HER MOOD AND THOUGHTS. PT CANNOT SEE HERSELF NOT HAVING ANXIETY AND PT GOAL IS TO BE 100% FREE FROM ANXIETY. PT WAS ASSURED THAT IT TAKES TIME AND WORK ON HER PART.
--- NOTE | 2018-03-27 13:37 | NUR ---
PATIENT IS ALERT AND ORIENT TO PERSON, PLACE, TIME AND SITUATION; ABLE TO VOICE NEEDS. MOOD IS DEPRESSED, ANXIOUS AND HOPELESS, SAD AFFECT. DENIES ANY HALLUCINATIONS, DELUSIONS, HI/SI. THOUGHT PROCESS ORGANIZED. INDEPENDENT WITH ACTIVITIES OF DAILY LIVING, CONITINENT OF BOWEL AND BLADDER. SET UP FOR MEALS, INTAKES ARE GOOD WITH ADEQUATE FLUIDS. AMBULATORY WITH STEADY GAIT. MEDICATION COMPLAINT WITH EDUCATION PROVIDED. Q 15 MINUTE SAFETY CHECKS MAINTAINED. CONTINUE TO MONITOR MOOD AND APPETITE, PROVIDE ONE ON ONE NEEDED. P: DEPRESSED MOOD, SAD AFFECT AND ANXIOUS I: ONE ON ONE, ENCOURAGE PATIENT TO SOCIALIZE WITH OTHER PATIENTS AND STAFF R: RECEPTIVE P: CONTINUE TO PROVIDE ONE ON ONE AND ENGAGE IN SOCIAL INTERACTIONS WITH PATIENTS AND STAFF.
--- NOTE | 2018-03-27 15:51 | NUR ---
PM GROUP/MEDITATION AND THE 5 SENSES PT ATTENDED AND PARTICIPATED IN ALL GROUP ACTIVITIES. PT WAS ABLE TO RELAX AND EXHIBITED NO ANXIOUS OR DEPRESSIVE SYMPTOMS DURING GROUP.
--- NOTE | 2018-03-27 17:57 | NUR ---
Shift chart check completed.
[2018-03-27 20:00] VITALS: BP 130/62
--- NOTE | 2018-03-27 21:45 | NUR ---
P-DEPRESSED MOOD. PATIENT IS ALERT AND ORIENTED. NO SHORT TERM AND RN ACUTE MEMORY DEFICITS NOTED. NO HALLUCINATIONS OR DELUSIONS. NO VERBALIZATION OF SUICIDAL OR HOMICIDAL IDEATIONS. I-INTERVENTIONS WITH 1:1 INTERVENTIONS. EDUCATE AND ENCOURAGE MEDICATION COMPLIANCE R-PATIENT STATING "I FEEL BETTER TODAY, BUT I AM NERVOUS ABOUT GOING HOME. MY FAMILIY TOLD MY FRIEND NOT TO CALL WHILE I'M HERE BECAUSE SHE TALKS A LONG TIME AND SHE WANTS ME TO GO HOME SO I CAN HELP HER". THIS NURSE EXPLAINED TO PATIENT THAT LIMITING HER PHONE CALLS TO HER FRIEND FOR NOW IS A GOOD IDEA AND THAT THIS IS THE TIME FOR HER TO FOCUS A LITTLE MORE ON HERSELF. PATIENT AGREED TO FOCUS MORE ON HERSELF WHILE SHE IS HERE. PATIENT IS AMBULATORY ON UNIT WITH STEADY GAIT AND WITHOUT ASSISTIVE DEVICE. PATIENT IS CONTINENT. PATIENT PROVIDED NOURISHMENT AND FLUIDS AT . PATIENT MEDICATION COMPLIANT WITHOUT DIFFICULTY. P-CONTINUE TO ENCOURAGE MEDICATION COMPLIANCE, ENCOURAGE GROUP THERAPY WHILE AWAKE
--- NOTE | 2018-03-28 06:07 | NUR ---
PATIENT SLEPT 6-7 HOURS OF UNINTERRUPTED SLEEP THROUGHOUT SHIFT. Q 15 MINUTE CHECKS MAINTAINED
[2018-03-28 07:37] VITALS: BP 133/59
--- NOTE | 2018-03-28 08:15 | NUR ---
Treatment Plan meeting with Dr. Sheridan, RN, AT, and Cash Register Operator. Plan for discharge Saturday. Pt. to return home.
--- NOTE | 2018-03-28 09:46 | NUR ---
Left Message for [facility] [employer] to discuss discharge Follow Up appointments.
--- NOTE | 2018-03-28 10:46 | NUR ---
AND ON UNIT TO SEE PT AT THIS TIME.
--- NOTE | 2018-03-28 11:35 | NUR ---
Met with pt for CBT session and anxiety management techniques as well as interpersonal effectiveness skill building. Inquired if pt was able to complete her safety plan and cognitive distortion worksheet on decatastrophizing. Pt indcated she did not complete it but she knows what who she would call in an emergency. Discussed an upsetting call she had with her other sister as that sister mentioned assisted living as an option. Pt at one point indicated she was very anxious and later indicated she was feeling better and then engaged in dog therapy and was informed we will touch base again later.
--- NOTE | 2018-03-28 11:51 | NUR ---
AM GROUP/THERAPY DOG PT ATTENDED AND PARTICIPATED IN THE SESSION WITH THE THERAPY DOG, "SILASLICO" PT WAS HAPPY TO PET HER AND CONVERSE WITH HER KILN WORKER. PT EXHIBITED NO SIGNS OF ANXIETY OR DEPRESSIVE SYMPTOMS DURING THE SESSION.
--- NOTE | 2018-03-28 13:46 | NUR ---
P-PT REPORTS FEELING MILDLY DEPRESSED THIS SHIFT DURING ONE ON ONE INTERACTIONS WITH THIS RN. I-ONE ON ONE COMPLETED WITH PATIENT. EMOTIONAL SUPPORT PROVIDED. ALLOWED PT TO VENT FEELINGS AND EMOTIONS. ASSESSED PT FOR SI/HI AND PASSIVE WISH. ASSESSED PT FOR ANXIETY, POOR APPETITE, AND SLEEP. R-PT CONVINCINGLY DENIES ANY SI/HI OR PASSIVE WISH. STATES SHE IS FEELING BETTER THAN YESTERDAY BUT "I STILL CARRIE FEEL DEPRESSED AND DOWN." APPETITE GOOD FOR MEALS AND PT SLEPT APPROXIMATELY 6-7 HOURS INTERRUPTED LAST NIGHT.ANXIETY LEVELS LOW THIS SHIFT, STATES MEDICATIONS ARE EFFECTIVE, DENIES ANY SIDE EFFECTS OR ADVERSE REACTIONS. UPDATE GIVEN TO NORM, SISTER, WITH PT CONSENT. MEDICATION COMPLIANT WITHOUT DIFFICULTY. HAS BEEN UP IN DAY ROOM ALL SHIFT INTERACTING WITH PEERS POSITIVELY. + DRESS AND HYGIENE. ALERT AND ORIENTED X4, MEMORY INTACT. ABLE TO MAKE NEEDS AND WANTS KNOWN TO STAFF. INDEPENDENT WITH ADLS. AMBULATES INDEPENDENTLY WITH SLOW AND STEADY GAIT. P-CONTINUE TO MONITOR MOOD AND BEHAVIOR FOR CHANGES. ASSESS FOR SI/HI, PASSIVE WISH, AND ANXIETY. ENCOURAGE PT TO ATTEND AND PARTICIPATE IN GROUP THERAPIES. CONTINUE WITH CURRENT TX PLAN. Q15 MIN CHECKS PER OBSERVATION ORDERS.
--- NOTE | 2018-03-28 15:38 | NUR ---
BINGO! PT ATTENDED AND PARTICIPATED IN BINGO. PT WAS HELPFUL TO PEERS. PT EXHIBITED NO SIGNS OF ANXIETY OR DEPRESSION DURING GROUP.
--- NOTE | 2018-03-28 17:55 | NUR ---
Engaged in therapy and provided relaxation techniques and psychoeducation and engaged in pro con activity with going home with supports and pt decided upon having her friend Hetal come over for a few days so together called Hetal and no answer and no ability to leave a VM pt will continue to try. Nurses made aware of plan. Pt also completed her therapy assignment and safety plan and reviewed it with this food writer and is agreeable to trying to attend an [employer] meeting and the locations and dates and times were provided to pt. Pt stated she is feeling better despite being anxious earlier. Pt engaged in positive affirmations activity and self compassion break as well.
[2018-03-28 20:00] VITALS: BP 122/65
--- NOTE | 2018-03-28 23:00 | NUR ---
P-DEPRESSED MOOD. PATIENT WITH NO SHORT TERM OR PHOTO MASK PATTERN GENERATOR MEMORY DEFICITS. PATIENT WITH NO HALLUCINATIONS OR DELUSIONS. PATIENT WITH SUICIDAL OR HOMICIDAL IDEATIONS. NO RESPIRATION DISTRESS I-EDUCATE AND ENCOURAGE MEDICATION COMPLIANCE R-PATIENT STATING "I STILL FEEL DEPRESSED AND I JUST DON'T KNOW WHAT TO DO NEXT". PATIENT MEDICATION COMPLIANT. PATIENT REQUESTED ROZEREM 8 MG AT HS TO HELP SLEEP. PATIENT PROVIDED THERAPEUTIC 1:1 INTERVENTIONS AND STATES "I FEEL A LITTLE BETTER AFTER TALKING ABOUT THINGS". PATIENT MEDICATION COMPLIANT. P-CONTINUE TO ENCOURAGE MEDICATION COMPLIANCE, ENCOURAGE GROUP THERAPY WHILE AWAKE
--- NOTE | 2018-03-29 01:44 | NUR ---
24 HR chart check completed.
--- NOTE | 2018-03-29 06:31 | NUR ---
PATIENT SLEPT 7-8 HOURS UNINTERRUPTED SLEEP THROUGHOUT SHIFT. Q 15 MINUTE CHECKS MAINTAINED
[2018-03-29 07:36] VITALS: BP 128/66
--- NOTE | 2018-03-29 12:00 | NUR ---
AM GROUP/EXERCISES/ART/MUSIC PT ATTENDED AND PARTICIPATED DURING GROUP. PT ON TASK WITH ACTIVITY. PT QUIET BUT DID INTERACT WITH PEERS AND STAFF THROUGHOUT DISCUSSION IF SPOKEN TO.PT DID NOT EXPRESS ANY ANXIETY OR S.I. AT THIS TIME. PT WILL CONTINUE TO ATTEND AND PARTICIPATE IN FUTURE GROUP SESSION.
--- NOTE | 2018-03-29 14:27 | NUR ---
P-PT STATES SHE IS FEELING BETTER THIS SHIFT IT RELATES TO HER DEPRESSION, STATES IT HAS LIFTED. HOWEVER, PT DOES VERBALIZE INCREASED ANXIETY THIS SHIFT INSTEAD. AFFECT BLUNTED AND NOT BRIGHT YESTERDAY. WHEN ASKED TO DESCRIBE HER ANXIETY, PT STATES SHE GETS "COLD." UPON FURTHER ENCOURAGEMENT, PT STATES SHE FEELS THOUGH SHE "CAN'T FUNCTION" DURING PERIODS OF INCREASED ANXIETY. I-EMOTIONAL SUPPORT PROVIDED DURING ONE ON ONE INTERACTION THIS AFTERNOON. ALLOWED PT TO VENT FEELINGS AND EMOTIONS. PT VERBALLY CONTRACTED FOR SAFETY. SPOKE TO PT RE OUTPATIENT COUNSELING. REVIEWED POSITIVE COPING SKILLS WITH PT. MEDICATION EDUCATION COMPLETED WITH PT. R-PT STATES SHE WILL SEEK OUT STAFF WHEN FEELING OVERWHELMED. STATES SHE DOES NOT WISH TO GO BACK TO HER CURRENT COUNSELOR. PT RECEPTIVE TO MEDICATION EDUCATION. ABLE TO VERBALIZE 3 POSITIVE COPING SKILLS FOR WHEN SHE IS FEELING OVERWHELMED OR INCREASING ANXIETY. PT ALERT AND ORIENTED X4, MEMORY INTACT. ABLE TO VERBALIZE NEEDS AND WANTS TO STAFF. AFFECT REMAINS SAD AND BLUNTED. P-WILL SPEAK TO SW RE FINDING PT A DIFFERENT COUNSELOR. CONTINUE TO ENCOURAGE ATTENDENCE AND PARTICIPATION IN GROUP THERAPY.
--- NOTE | 2018-03-29 16:23 | NUR ---
Shift chart check completed.
[2018-03-29 19:49] VITALS: BP 126/60
--- NOTE | 2018-03-29 23:23 | NUR ---
P-DEPRESSED MOOD, ANXIETY-PATIENT IS ALERT AND ORIENTED. PATIENT WITH NO SHORT TERM OR SALES AGENT BUSINESS SERVICES MEMORY DEFICITS. PATIENT WITH NO HALLUCINATIONS OR DELUSIONS. PATIENT WITH NO SUICIDAL OR HOMICIDAL IDEATIONS. PATIENT VERBALIZED HAVING FEELINGS OF DEPRESSION, BUT DENIES FEELING OF ANXIETY AT THIS TIME. PATIENT IS MORE ISOLATIVE AND WITHDRAWN. PATIENT IS LESS INTEACTIVE WITH PEERS WHILE AWAKE AT THIS TIME I-EDUCATE AND ENCOURAGE MEDICATION COMPLIANCE. DISCUSS TRIGGERS FOR EPISODES OF DEPRESSED MOOD AND COPING MECHANISMS TO DEPRESSED MOOD R-PATIENT VERBALIZED "I JUST FEEL DEPRESSED AND HOPELESS SOMETIMES. I JUST WANT TO BE THERE FOR MY FAMILY AND FRIENDS" PATIENT VERBALIZED FEEING A LITTLE BETTER AFTER COMMUNICATING TRIGGERS FOR DEPRESSION. PATIENT VERBALIZED NEED FOR MORE DIVERSIONAL ACTIVITIES TO HELP WITH EPISODES OF DEPRESSION. PATIENT MEDICATION COMPLIANT. NOURISHMENT AND FLUIDS PROVIDED. P-CONTINUE TO ENCOURAGE MEDICAITON COMPLIANCE. ENCOURAGE GROUP THERAPY WHILE AWAKE
--- NOTE | 2018-03-30 00:20 | NUR ---
24 HR chart check completed.
--- NOTE | 2018-03-30 06:03 | NUR ---
PATIENT SLEPT >8 HOURS UNINTERRUPTED THROUGHOUT SHIFT. Q 15 MINUTE CHECKS MAINTAINED
[2018-03-30 07:25] VITALS: BP 123/61
--- NOTE | 2018-03-30 16:25 | NUR ---
P- PT WITHDRAWN THIS SHIFT. CONTINUES TO REPORT DEPRESSION SYMPTOMS. I- ASSESS PT FOR SI/HI AND SENSORY DISTURBANCES. EMOTIONAL SUPPORT PROVIDED NEEDED. ALLOWED PT TO VENT AND EXPRESS FEELINGS. ENCOURAGED PEER INTERACTIONS TO REDUCE ISOLATION BEHAVIOR. R- PT REMAINS MILDLY DEPRESSED THIS SHIFT. DENIES ANY SI/HI OR SENSORY DISTURBANCES.ANXIETY LEVELS LOW THIS SHIFT. MEDICATION COMPLIANT WITHOUT DIFFICULITY. A&OX4 MEMORY INTACT. P- ENCOURAGES GROUPS
--- NOTE | 2018-03-30 16:30 | NUR ---
PM GROUP/LEISURE SKILLS PT ATTENDED AND PARTICIPATED DURING GROUP. PT ON TASK SITTING AT TABLE WITH PEERS BUT WAS NOT TALKATIVE PEERS. PT DID NOT EXPRESS ANY ANXIETY OR SUICIDAL IDEATIONS AT THIS TIME. PT WILL CONTINUE TO ATTEND AND PARTICIPATE IN FUTURE GROUP SESSIONS.
--- NOTE | 2018-03-30 18:14 | NUR ---
Shift chart check completed.
[2018-03-30 19:55] VITALS: BP 137/55
--- NOTE | 2018-03-30 21:14 | NUR ---
Met with pt and reviewed safety plan with Hetal-friend staying with pt upon discharge to assist in adjustment back to the home environment. Rupinder stated she is feeling okay about it. Pt appeared with a flat affect.
--- NOTE | 2018-03-30 23:29 | NUR ---
P-DEPRESSED MOOD. PATIENT ALERT AND ORIENTED. PATIENT WITH NO SHORT TERM AND HALFWAY MEMORY DEFICITS. PATIENT WITH NO HALLUCINATIONS OR DELUSIONS. PATIENT WITH NO HOMICIDAL OR SUICIDAL IDEATIONS. PATIENT STATES "I HOPE I CAN SLEEP TONIGHT. I JUST FEEL LIKE I MAYBE I WOULD FEEL BETTER. I-EDUCATE AND ENOURAGE MEDICATIONS COMPLIANCE. DISCUSS TRIGGERS FOR DEPRESSED MOOD AND COPING MECHANISMS FOR DEPRESSED EPISODES R-PATIENT VERBALIZED NEED FOR NEW COUNSELOR WHEN SHE GOES HOME. PATIENT VERBALIZED THAT SHE DOES NOT LIKE HER CURRENT COUNSELOR. NOURISHMENT AND FLUIDS PROVIDED AT HS. PATIENT LESS ISOLATIVE AND MORE INTERACTING AND PARTICIPATING WITH PEERS AND NURSING STAFF THOUGHOUT SHIFT. P-CONTINUE TO ENCOURAGE MEDICATION COMPLIANCE, ENCOURAGE GROUP THERAPY WHILE AWAKE
--- NOTE | 2018-03-31 00:35 | NUR ---
24 HR chart check completed.
[2018-03-31 07:15] VITALS: BP 141/57
--- NOTE | 2018-03-31 08:00 | NUR ---
TREATMENT PLAN MEETING WITH DR. CHACON, RN, AT AND COMPUTER HARDWARE TECHNICIAN. PLAN FOR DISCHARGE TODAY. FOLLOW UP APPOINTMENTS ARRANGED AND PT. SISTER TO PICK PATIENT UP AT 11:00 A.M.
[2018-03-31] MEDS ORDERED: ATARAX,VISTARIL10 MG PO (09:02)
[2018-03-31] MEDS ORDERED: ROZEREM8 MG PO (09:02)
[2018-03-31] MEDS ORDERED: DULOXETINE HCL60 MG PO (09:02)
--- NOTE | 2018-03-31 10:07 | NUR ---
SPOKE WITH DR. ESQUIVEL AT [phone] RE:PT DISCHARGE FOR 11AM AND MEDICAL MEDS NEEING COMPLETED. NO FURTHER ORDERS AT THIS TIME.
--- NOTE | 2018-03-31 10:17 | NUR ---
Met with pt and provided CBT session as well as reviewed relaxation techniques, anxiety management skills, and resources to utilize once in the home setting. Pt stated she was unaware of where her 's guns were as her stepson hide them and separate the ammunition from them years ago for her 's safety. This account underwriter also notified pts sister "Jailyn" to assist in safety proofing with the firearms. Pt stated she confirmed with her friend Hetal that she would come spend the first few nights with pt to assist in adjusting back home and her sister was bringing her some groceries. Pt appeared content and admitted to being a little nervous and normalization and validation were provided. Pt denied SI. Pt stated she and her friend could plan to watch a guided imagery you tube video. Reviewed pts safety plan and aftercare follow-up appts and the various locations. Pt discussed not feeling comfortable with her counselor and this account underwriter called Jason to see if there were alternatives but due to insurance they said that was the only person. Discussed self advocacy skills and pt said she is willing to try with that counselor Pratik as she recognizes she was not in the best frame of mind when she saw her last. Reviewed assertive communication skills. Also, provided resources for [place] groups. Pt seemed receptive and appreciated the encouragement and support and reflected upon positives she gained for her [facility] stay even though she didn't want to come at first. Pt was provided positive reinforcement and reviewed positive affirmations as well.
[2018-03-31] MEDS ORDERED: VITAMIN D5000 UNI1 PO (10:44)
--- NOTE | 2018-03-31 10:58 | NUR ---
PT ALERT TO PERSON, PLACE AND TIME. PT MED COMPLIANT WITHOUT DIFFICUTLY, MED EDUCATION PROVIDED. PT CALM, MOOD IS STABLE. NO HALLUCINATIONS OR DELUSIONS NOTED. PT DENIES ANY SUICIDAL/HOMICIDAL THOUGHTS. PT DISCHARGED VIA PRIVATE CAR TO HOME. DISCHARGE PACKET SENT WITH PT.
== END 2018-03-31 11:06 | disposition home or self-care (01) | DRG 885 ==
LOC: 3N 18:54
PROVIDERS: ADMIT Psychiatry & Neurology Psychiatry
DX: F33.2 Major depressive disorder, recurrent severe without psychotic features (principal); K57.90 Diverticulosis of intestine, part unspecified, without perforation or abscess without bleeding; I10 Essential (primary) hypertension; M19.90 Unspecified osteoarthritis, unspecified site; F41.9 Anxiety disorder, unspecified; E78.5 Hyperlipidemia, unspecified; E03.9 Hypothyroidism, unspecified; Z86.010 Personal history of colon polyps; Z90.49 Acquired absence of other specified parts of digestive tract; Z98.51 Tubal ligation status; Z82.49 Family history of ischemic heart disease and other diseases of the circulatory system; Z88.6 Allergy status to analgesic agent; Z88.1 Allergy status to other antibiotic agents; Z88.5 Allergy status to narcotic agent; Z88.8 Allergy status to other drugs, medicaments and biological substances; Z79.899 Other long term (current) drug therapy

== ENCOUNTER 2024-08-11 07:29 | Inpatient (IN) | payer MEDICARE ==
[~2024-08-11] VITALS: Ht 154.9 cm; Wt 52.2 kg
[~2024-08-11 07:29] MED LIST: ATARAX,VISTARIL10 MG PO; ATORVASTATIN CA40 M1 PO; BISOPROLOL-HCT1 EACH PO; DULOXETINE HCL60 MG PO; LEXAPRO10 MG PO; PROTONIX40 MG PO; ROZEREM8 MG PO; SYNTHROID25 MCG PO; TRAVATAN Z 2.52.5 ML OU; VITAMIN D5000 UNI1 PO
[2024-08-11] MEDS ORDERED: ELIQUIS2.5 M1 PO (09:37)
[2024-08-11] MEDS ORDERED: DIGOXIN125 MCG PO (09:38)
[2024-08-11] MEDS ORDERED: LASIX20 MG PO (09:38)
[2024-08-11] MEDS ORDERED: CYMBALTA30 MG PO (09:39)
[2024-08-11] MEDS ORDERED: HYDROXYZINE HCL10 MG PO (09:40)
[2024-08-11] MEDS ORDERED: LYSINE500 MG PO (09:41)
[2024-08-11] MEDS ORDERED: LEVOTHYROXINE50 MC1 PO (09:42)
[2024-08-11] MEDS ORDERED: CALCIUM CITRAT1 EA18 PO (09:42)
[2024-08-11] MEDS ORDERED: DORZOLAMIDE HYD10 M2 OP (09:44)
[2024-08-11] MEDS ORDERED: OXYBUTYNIN10 MG PO (09:44)
[2024-08-11] MEDS ORDERED: METOPROLOL SUCC50 M1 PO (09:45)
[2024-08-11] MEDS ORDERED: ALPHAGAN P 10 M10 M1 OS (09:46)
[2024-08-11] MEDS ORDERED: VYZULTA5 ML OS (09:46)
[2024-08-11 15:15] VITALS: BP 116/70
[2024-08-11] MEDS ORDERED: MG-AL HYDROXIDE/SIMETICONE 30 ML UDC PO PRN (15:15)
[2024-08-11] MEDS ORDERED: ACETAMINOPHEN 325 MG TAB PO PRN (15:15)
[2024-08-11 19:02] LABS: BILIRUBIN Negative (Negative); BLOOD Negative (Negative); CLARITY Clear (Clear); COLOR Yellow (Yellow); KETONE Negative (Negative); LEUKO ESTERASE 3+ (Negative); NITRITE Negative (Negative); PH 7.5 (4.5-8.0); SPECIFIC GRAVITY 1.015 (1.001-1.030); UROBILINOGEN 1.0 E.U./dl (0.0-1.0)
[2024-08-11 19:12] LABS: BACTERIA 2+; EPITHELIAL CELLS 0-2; RBC 0-2 rbc/hpf (0-2); WBC 21-30 wbc/hpf (0-5)
[2024-08-11 20:00] VITALS: BP 117/64
[2024-08-11] MEDS ORDERED: LORazepam 1 MG TAB PO PRN (20:55)
[2024-08-11] MEDS ORDERED: Water, Sterile 10 ML VIAL IM PRN (20:55)
[2024-08-11] MEDS ORDERED: hydrOXYzine hydrochloride 50 MG/ML VIAL IM PRN (21:00)
[2024-08-11] MEDS ORDERED: APIXABAN 2.5 MG TABLET PO SCH (21:00)
[2024-08-11] MEDS ORDERED: MED. FROM HOME 1 EACH EA OPH SCH (21:00)
[2024-08-11] MEDS ORDERED: BRIMONIDINE 0.2% 15 ML BOTTLE OPH SCH (21:00)
[2024-08-11] MEDS ORDERED: Dorzolamide Hydrochloride/TiMOLOL 2.23%/0.68% 10 ML BOTTLE OPH SCH (21:00)
[2024-08-11] MEDS ORDERED: ATORVASTATIN CALCIUM 40 MG TABLET PO SCH (21:00)
[2024-08-12 07:29] LABS: BASO # 0.0 10*3/uL (0.0-0.1); BASO % 0.5 % (0.0-1.0); EOS # 0.3 10*3/uL (0.0-0.4); EOS % 5.2 % (1.0-4.0); MEAN CELL VOLUME 89.4 fl (81.0-99.0); MEAN CORPUSCULAR HGB 29.6 pg (27.0-31.0); MEAN PLATELET VOLUME 9.0 fl (9.6-12.3); MONO # 0.6 10*3/uL (0.1-1.0); MONO % 10.6 % (3.0-9.0); NEUT # 2.7 10*3/uL (2.3-7.9); NEUT % 48.1 % (47.0-73.0); NUCLEATED RED BLOOD CELL 0.0 % (0.0-0.0); NUCLEATED RED BLOOD CELL 0.0 10*3/uL (0.0-0.0); PLATELET COUNT AUTOMATED 344 10*3/uL (130-400); RED CELL DISTRI WIDTH 13.5 % (0-14.5)
[2024-08-12 08:00] VITALS: BP 121/57
[2024-08-12 08:18] LABS: BUN 13 mg/dl (9-23); LDL CHOLESTEROL 76 mg/dL (9-159); SGPT/ALT 16 U/L (5-49)
[2024-08-12] MEDS ORDERED: DIGOXIN 125 MCG TAB PO SCH (09:00)
[2024-08-12] MEDS ORDERED: LYSINE 500 MG PO SCH (09:00)
[2024-08-12] MEDS ORDERED: METOPROLOL SUCCINATE XR 25 MG TAB PO SCH (09:00)
[2024-08-12] MEDS ORDERED: FUROSEMIDE 20 MG TAB PO SCH (09:00)
[2024-08-12 09:24] LABS: VITAMIN D, 25-HYDROXY 78.7 ng/mL (30-100)
[2024-08-12] MEDS ORDERED: CYANOCOBALAMIN 1,000 MCG/ML VIAL IM SCH (14:00)
[2024-08-12 20:00] VITALS: BP 136/58
[2024-08-13 10:05] VITALS: BP 105/44
[2024-08-13 20:00] VITALS: BP 104/59
[2024-08-13] MEDS ORDERED: ARIPiprazole 5 MG TAB PO SCH (21:00)
[2024-08-14 08:00] VITALS: BP 118/67
[2024-08-14 13:32] LABS: BILIRUBIN Negative (Negative); BLOOD Negative (Negative); CLARITY Clear (Clear); COLOR Yellow (Yellow); KETONE Negative (Negative); LEUKO ESTERASE 3+ (Negative); NITRITE Negative (Negative); PH 7.5 (4.5-8.0); SPECIFIC GRAVITY 1.010 (1.001-1.030); UROBILINOGEN 0.2 E.U./dl (0.0-1.0)
[2024-08-14 13:39] LABS: BACTERIA 1+; RBC 0-2 rbc/hpf (0-2); WBC 16-20 wbc/hpf (0-5)
[2024-08-14 13:40] LABS: EPITHELIAL CELLS 0-2
[2024-08-14 20:00] VITALS: BP 149/81
[2024-08-15 08:00] VITALS: BP 125/59
[2024-08-15 20:00] VITALS: BP 131/61
[2024-08-16 09:38] VITALS: BP 127/56
[2024-08-16 20:00] VITALS: BP 113/68
[2024-08-17 08:00] VITALS: BP 121/68
[2024-08-17 20:00] VITALS: BP 109/53
[2024-08-18 08:00] VITALS: BP 121/55
[2024-08-18 17:08] LABS: BILIRUBIN Negative (Negative); BLOOD Negative (Negative); CLARITY Clear (Clear); COLOR Yellow (Yellow); KETONE Negative (Negative); LEUKO ESTERASE 3+ (Negative); NITRITE Positive (Negative); PH 7.0 (4.5-8.0); SPECIFIC GRAVITY 1.015 (1.001-1.030); UROBILINOGEN 1.0 E.U./dl (0.0-1.0)
[2024-08-18 17:25] LABS: BACTERIA 2+; WBC TNTC wbc/hpf (0-5)
[2024-08-18 20:00] VITALS: BP 101/51
[2024-08-18] MEDS ORDERED: ARIPiprazole 5 MG TAB PO SCH (21:00)
[2024-08-19 08:37] VITALS: BP 127/61
[2024-08-19 20:00] VITALS: BP 132/41
[2024-08-20 06:40] LABS: BASO # 0.1 10*3/uL (0.0-0.1); BASO % 0.7 % (0.0-1.0); EOS # 0.5 10*3/uL (0.0-0.4); EOS % 7.5 % (1.0-4.0); MEAN CELL VOLUME 91.5 fl (81.0-99.0); MEAN CORPUSCULAR HGB 29.9 pg (27.0-31.0); MEAN PLATELET VOLUME 8.7 fl (9.6-12.3); MONO # 0.8 10*3/uL (0.1-1.0); MONO % 11.6 % (3.0-9.0); NEUT # 3.0 10*3/uL (2.3-7.9); NEUT % 43.8 % (47.0-73.0); NUCLEATED RED BLOOD CELL 0.0 % (0.0-0.0); NUCLEATED RED BLOOD CELL 0.0 10*3/uL (0.0-0.0); PLATELET COUNT AUTOMATED 354 10*3/uL (130-400); RED CELL DISTRI WIDTH 13.2 % (0-14.5)
[2024-08-20 07:15] LABS: BUN 17 mg/dl (9-23); SGPT/ALT 19 U/L (5-49)
[2024-08-20 08:56] VITALS: BP 116/41
[2024-08-20] MEDS ORDERED: CEPHALEXIN 500 MG CAP PO SCH (18:00)
[2024-08-20 20:00] VITALS: BP 118/62
[2024-08-21] MEDS ORDERED: CLONAZEPAM0.5 M2 PO (06:45)
[2024-08-21] MEDS ORDERED: DULOXETINE HCL60 MG PO (06:45)
[2024-08-21] MEDS ORDERED: B121000 MCG/1 IM (06:51)
[2024-08-21] MEDS ORDERED: ABILIFY10 MG PO (06:51)
[2024-08-21 08:00] VITALS: BP 111/57
[2024-08-21] MEDS ORDERED: CEPHALEXIN500 M1 PO ×2 (11:01→11:02)
== END 2024-08-21 11:18 | disposition home or self-care (01) | DRG 885 ==
LOC: 3N 07:29
PROVIDERS: Counselor Professional; Registered Nurse; ADMIT Psychiatry & Neurology Psychiatry; ATTEND Psychiatry & Neurology Psychiatry
PROC: GZHZZZZ Group Psychotherapy (ICD-10-PCS; principal; 2024-08-11)
PROC: GZ56ZZZ Individual Psychotherapy, Supportive (ICD-10-PCS; 2024-08-11)
DX: F33.2 Major depressive disorder, recurrent severe without psychotic features (principal); R45.851 Suicidal ideations; E78.5 Hyperlipidemia, unspecified; I10 Essential (primary) hypertension; F41.0 Panic disorder [episodic paroxysmal anxiety]; F41.1 Generalized anxiety disorder; E03.9 Hypothyroidism, unspecified; K57.30 Diverticulosis of large intestine without perforation or abscess without bleeding; Z90.49 Acquired absence of other specified parts of digestive tract; Z82.49 Family history of ischemic heart disease and other diseases of the circulatory system; Z88.1 Allergy status to other antibiotic agents; Z88.8 Allergy status to other drugs, medicaments and biological substances; Z91.09 Other allergy status, other than to drugs and biological substances; Z79.899 Other long term (current) drug therapy; Z79.01 Long term (current) use of anticoagulants; Z79.2 Long term (current) use of antibiotics